=== PATIENT | female | born 1930 | race Caucasian/White ===

== ENCOUNTER 2018-09-16 11:39 | Emergency (ER) | payer MEDICARE, BC ==
[~2018-09-16] VITALS: Ht 162.6 cm; Wt 75.5 kg
[2018-09-16 12:39] LABS: GLUCOSE,POINT OF CARE 146 MG/DL (70-110)
[2018-09-16] MEDS ORDERED: RANI150C4 PO (12:41)
[2018-09-16] MEDS ORDERED: POT25TAB5 PO (12:41)
[2018-09-16] MEDS ORDERED: AMLO-512 PO (12:43)
[2018-09-16] MEDS ORDERED: LISI-618 PO (12:43)
[2018-09-16] MEDS ORDERED: FURO20TA4 PO (12:43)
[2018-09-16] MEDS ORDERED: METF-446 PO (12:43)
[2018-09-16] MEDS ORDERED: HydrOXYzine PAMOATE 50 MG CAPSULE PO ONE (13:00)
[2018-09-16 13:23] LABS: BASOPHILS % (AUTO) 0.4 % (0.0-2.0); EOSINOPHILS % (AUTO) 1.8 % (1.0-6.0); LYMPHOCYTES # (AUTO) 1.1 K/uL (1.0-4.8); LYMPHOCYTES % (AUTO) 26.4 % (22.0-44.0); MEAN CORPUSCULAR HEMOGLOBIN 29.3 pg (26.0-34.0); MEAN CORPUSCULAR HGB CONC 34.1 G/dL (31.0-37.0); MEAN CORPUSCULAR VOLUME 86 fL (80-100); MONOCYTES # (AUTO) 0.3 K/uL (0.1-1.0); MONOCYTES % (AUTO) 6.8 % (2.0-9.0); NEUTROPHILS # (AUTO) 2.8 K/uL (1.8-7.7); NEUTROPHILS % (AUTO) 64.6 % (40.0-70.0); PLATELET COUNT (AUTO) 131 K/uL (150-450); RED BLOOD CELL COUNT(AUTO) 4.42 MIL/uL (4.00-5.20); RED CELL DISTRIBUTION WIDTH 13.9 % (11.5-14.5)
[2018-09-16 13:40] LABS: ANION GAP 10 mmol/L (8-16); CALCIUM, TOTAL 9.4 mg/dL (8.8-10.5); CARBON DIOXIDE 26 mmol/L (22-29); CHLORIDE 106 mmol/L (98-107); CREATININE 0.59 mg/dL (0.60-1.30); GLUCOSE,RANDOM 133 mg/dL (70-110); POTASSIUM 3.4 mmol/L (3.5-5.1); SODIUM SERUM 142 mmol/L (136-145); UREA NITROGEN, BLOOD 14 mg/dL (7-18)
[2018-09-16 13:41] LABS: GLOMERULAR FILTR. RATE CALC > 60 mL/min (>60)
[2018-09-16 14:16] VITALS: BP 154/109
== END 2018-09-16 14:21 | disposition home or self-care (01) ==
LOC: EMS 11:43
DX: F41.9 Anxiety disorder, unspecified (principal); R06.02 Shortness of breath; J45.909 Unspecified asthma, uncomplicated; E11.9 Type 2 diabetes mellitus without complications; I10 Essential (primary) hypertension; Z95.0 Presence of cardiac pacemaker; Z79.84 Long term (current) use of oral hypoglycemic drugs; Z79.899 Other long term (current) drug therapy
CPT/HCPCS: 93005